=== PATIENT | female | born 1945 | race Two or more races ===

== ENCOUNTER 2017-06-01 15:39 | Emergency (ER) | payer MEDICARE, MEDICAID ==
[~2017-06-01] VITALS: Ht 154.9 cm; Wt 90.7 kg
[2017-06-01 17:43] LABS: Urine Bilirubin Negative (Negative); Urine Blood Negative /uL (Negative); Urine Color Yellow (Yellow); Urine Glucose Normal (Normal); Urine Ketone Negative (Negative); Urine Mucus FEW (None Seen); Urine Nitrite Negative (Negative); Urine RBC 3 /hpf (0 - 4); Urine Squamous Epithelial Cell FEW /hpf (<5); Urine Urobilinogen Normal (Negative); Urine WBC Clumps PRESENT /hpf (None Seen)
[2017-06-01] MEDS ORDERED: cefTRIAXone 1GM/10ml IVPUSH 10 ML IV ONE (18:00)
[2017-06-01 18:11] LABS: Basophils # (auto) 0 uL; Basophils % (auto) 0.7 % (0.0-2.0); Eosinophils # (auto) 0.1 uL; Hematocrit 39.9 % (36.0-46.0); Lymphocytes # (auto) 1.5 uL; Lymphocytes % (auto) 26.4 % (10.0-50.0); Mean Corpuscular Hemoglobin 27.4 pg (28.0-32.0); Mean Corpuscular Hgb Conc. 32.5 g/dL (32.0-36.0); Mean Corpuscular Volume 84.2 fL (80.0-100.0); Mean Platelet Volume 8.5 fL (6.9-10.8); Monocytes # (auto) 0.5 uL; Monocytes % (auto) 9.5 % (0.0-12.0); Neutrophils # (auto) 3.5 uL; Neutrophils % (auto) 61.4 % (37.0-80.0); Nucleated Red Blood Cells % 0.1 %; Platelet Count (auto) 167 10^3/uL (140-450); Red Cell Distribution Width 13.3 % (11.8-14.3); White Blood Cell 5.7 10^3/uL (4.4-10.8)
[2017-06-01 18:30] LABS: Albumin 3.2 g/dL (3.4-5.0); BUN/Creatinine Ratio 18.7; Calcium 8.7 mg/dL (8.5-10.1)
[2017-06-01 18:35] LABS: Bilirubin, Total 0.3 mg/dL (0.2-1.0); Total Protein 7.4 g/dL (6.4-8.2)
[2017-06-01 18:41] LABS: B-Type Natriuretic Peptide 310.88 pg/mL (0-100)
[2017-06-01 19:01] VITALS: BP 142/127
[2017-06-01 19:14] LABS: Temperature: 22.7 C (20.0-25.0)
== END 2017-06-01 20:54 | disposition home or self-care (01) ==
LOC: ER 15:49
DX: K59.00 Constipation, unspecified (principal); N39.0 Urinary tract infection, site not specified; I25.10 Atherosclerotic heart disease of native coronary artery without angina pectoris; M16.11 Unilateral primary osteoarthritis, right hip; E66.01 Morbid (severe) obesity due to excess calories; M47.896 Other spondylosis, lumbar region; I50.9 Heart failure, unspecified; E11.9 Type 2 diabetes mellitus without complications; Z68.37 Body mass index [BMI] 37.0-37.9, adult; Z95.0 Presence of cardiac pacemaker; Z88.8 Allergy status to other drugs, medicaments and biological substances
CPT/HCPCS: 36415; 74022; 80053; 81001; 83880; 84484; 85025; 96374

== ENCOUNTER 2017-06-25 00:44 | Emergency (ER) | payer MEDICARE ==
[~2017-06-25] VITALS: Ht 160 cm; Wt 2.4 kg
[2017-06-25] MEDS ORDERED: methylPREDNISolone SOD SUCC 125 MG/2 ML VL IV ONE (01:00)
[2017-06-25] MEDS ORDERED: diphenhdrAMINE HCL 50 MG/1 ML VL IV ONE (01:00)
[2017-06-25] MEDS ORDERED: FAMOTIDINE (10MG/ML) 2ML VL IV ONE (01:00)
[2017-06-25] MEDS ORDERED: ACETAMINOPHEN 325 MG TAB PO ONE (02:00)
[2017-06-25 03:29] VITALS: BP 196/93
[2017-06-25] MEDS ORDERED: HYDROmorphone HCL 2 MG/ML VL ONE (03:49)
[2017-06-25] MEDS ORDERED: ONDANSETRON HCL 4 MG/2 ML VIAL ONE (03:49)
[2017-06-25] MEDS ORDERED: HYDROmorphone HCL 2 MG/ML VL IV ONE (04:15)
[2017-06-25] MEDS ORDERED: ONDANSETRON HCL 4 MG/2 ML VIAL IV ONE (04:15)
== END 2017-06-25 04:34 | disposition home or self-care (01) ==
LOC: EDBD 00:44 → MED 00:55
DX: T78.3XXA Angioneurotic edema, initial encounter (principal); K12.1 Other forms of stomatitis; I11.0 Hypertensive heart disease with heart failure; I50.9 Heart failure, unspecified; E11.9 Type 2 diabetes mellitus without complications; Z95.0 Presence of cardiac pacemaker; Z95.1 Presence of aortocoronary bypass graft; Z88.8 Allergy status to other drugs, medicaments and biological substances; X58.XXXA Exposure to other specified factors, initial encounter
CPT/HCPCS: 70490; 96374; 96375; 99284; J1170; J1200; J2405; J2930; J3490

== ENCOUNTER 2018-03-13 16:43 | Observation (INO) | payer MEDICARE, MEDICAID ==
[~2018-03-13] VITALS: Ht 167.6 cm; Wt 104.3 kg
[2018-03-13 18:21] LABS: Basophils # (auto) 0 uL; Basophils % (auto) 0.9 % (0.0-2.0); Eosinophils # (auto) 0.2 uL; Hematocrit 42.1 % (36.0-46.0); Hemoglobin 13.9 g/dL (12.2-16.2); Lymphocytes % (auto) 24.1 % (10.0-50.0); Mean Corpuscular Hemoglobin 27.4 pg (28.0-32.0); Mean Corpuscular Volume 83.2 fL (80.0-100.0); Monocytes # (auto) 0.4 uL; Monocytes % (auto) 10.3 % (0.0-12.0); Neutrophils # (auto) 2.6 uL; Neutrophils % (auto) 60.7 % (37.0-80.0); Nucleated Red Blood Cells % 0.1 %; Platelet Count (auto) 123 10^3/uL (140-450); Red Blood Cells 5.06 10^6/uL (4.0-5.20); Red Cell Distribution Width 13.3 % (11.8-14.3); White Blood Cell 4.3 10^3/uL (4.4-10.8)
[2018-03-13 18:26] LABS: INR 0.93 (0.9-1.15)
[2018-03-13 18:32] LABS: Magnesium 2.2 mg/dL (1.6-2.6)
[2018-03-13] MEDS ORDERED: cloNIDine HCL 0.1 MG TAB PO ONE (19:00)
[2018-03-13] MEDS ORDERED: ACETAMINOPHEN 325 MG TAB PO ONE (19:00)
[2018-03-13] MEDS ORDERED: traMADol HCL 50 MG TAB PO ONE (21:00)
[2018-03-13 21:54] VITALS: BP 146/57
== END 2018-03-13 22:16 | disposition home or self-care (01) | DRG 552 ==
LOC: ER 16:43 → EDBD 16:43 → EDUNIT# 16:43 → OVERFLOW 16:44 → ER 22:16
PROVIDERS: ADMIT Family Medicine; ATTEND Family Medicine
DX: S13.4XXA Sprain of ligaments of cervical spine, initial encounter (principal); I11.0 Hypertensive heart disease with heart failure; I50.9 Heart failure, unspecified; E11.9 Type 2 diabetes mellitus without complications; W19.XXXA Unspecified fall, initial encounter; Y92.002 Bathroom of unspecified non-institutional (private) residence as the place of occurrence of the external cause; Y93.89 Activity, other specified; Y99.8 Other external cause status
CPT/HCPCS: 36415; 70450; 71045; 72125; 83735; 84484; 85025; 85610; 85730; 93005; 99285; G0378

== ENCOUNTER 2019-07-17 03:56 | Emergency (ER) | payer MEDICARE, MEDICAID ==
[~2019-07-17] VITALS: Ht 167.6 cm; Wt 72.6 kg
[2019-07-17 05:13] LABS: Basophils # (auto) 0 uL; Basophils % (auto) 0.5 % (0.0-2.0); Eosinophils # (auto) 0.1 uL; Monocytes # (auto) 0.4 uL; Neutrophils # (auto) 4.2 uL; Nucleated Red Blood Cells % 0.1 %; White Blood Cell 5.2 10^3/uL (4.4-10.8)
[2019-07-17 05:14] LABS: Hematocrit 37.2 % (36.0-46.0); Hemoglobin 12.2 g/dL (12.2-16.2); Lymphocytes # (auto) 0.6 uL; Lymphocytes % (auto) 10.6 % (10.0-50.0); Mean Corpuscular Hemoglobin 27.2 pg (28.0-32.0); Mean Corpuscular Hgb Conc. 32.7 g/dL (32.0-36.0); Mean Corpuscular Volume 83.3 fL (80.0-100.0); Monocytes % (auto) 6.7 % (0.0-12.0); Neutrophils % (auto) 81.2 % (37.0-80.0); Platelet Count (auto) 104 10^3/uL (140-450); Red Blood Cells 4.46 10^6/uL (4.0-5.20); Red Cell Distribution Width 14.2 % (11.8-14.3)
[2019-07-17 05:19] LABS: Urine Bacteria MANY /hpf (None Seen); Urine Blood 1+ /uL (Negative); Urine Mucus FEW (None Seen); Urine Specific Gravity 1.016 (1.001-1.035); Urine WBC 209 /hpf (0 - 5); Urine WBC Clumps PRESENT /hpf (None Seen)
[2019-07-17 05:28] LABS: Albumin 3.1 g/dL (3.4-5.0); Anion Gap 6 (5-15); Blood Alcohol < 3.0 mg/dL (0-5); Blood Urea Nitrogen 45 mg/dL (7-18); Carbon Dioxide 26 mmol/L (21-32); Chloride 111 mmol/L (98-107); Glucose 180 mg/dL (74-106); Sodium 143 mmol/L (136-145)
[2019-07-17 05:31] LABS: Alanine Aminotransferase 38 U/L (13-56); Alkaline Phosphatase 109 U/L (45-117); Aspartate Aminotransferase 42 U/L (15-37); Bilirubin, Total 0.4 mg/dL (0.2-1.0); GFR African American 42 mL/min; GFR Non-African American 35 mL/min
[2019-07-17 05:31] LABS: Alcohol, Urine < 3.0 mg/dL (0-5); Amphetamine Screen, Urine NEGATIVE (NEGATIVE); Barbiturate Scree,Urine NEGATIVE (NEGATIVE); Benzodiazephine Screen, Urine NEGATIVE (NEGATIVE); Cannabinoid Screen, Urine NEGATIVE (NEGATIVE); Cocaine Screen, Urine NEGATIVE (NEGATIVE); Opiate Scree,Urine NEGATIVE (NEGATIVE); Phencyclidine Screen, Urine NEGATIVE (NEGATIVE)
[2019-07-17] MEDS ORDERED: ONDANSETRON HCL 4 MG/2 ML VIAL IV ONE (05:45)
[2019-07-17] MEDS ORDERED: MORPHINE SULF INJ 2 MG/ML SYRINGE 1ML IV ONE (05:45)
[2019-07-17] MEDS ORDERED: cloNIDine HCL 0.1 MG TAB PO ONE (06:15)
[2019-07-17] MEDS ORDERED: cefTRIAXone 1GM/50ML D5W 50 ML IV ONE (07:00)
[2019-07-17 14:00] VITALS: BP 137/60
== END 2019-07-17 15:12 | disposition home or self-care (01) ==
LOC: ER 03:56 → EDBD 03:56 → ER 15:11
DX: E11.21 Type 2 diabetes mellitus with diabetic nephropathy (principal); F03.90 Unspecified dementia, unspecified severity, without behavioral disturbance, psychotic disturbance, mood disturbance, and anxiety; E44.1 Mild protein-calorie malnutrition; M19.90 Unspecified osteoarthritis, unspecified site; N39.0 Urinary tract infection, site not specified; Z95.0 Presence of cardiac pacemaker; I11.0 Hypertensive heart disease with heart failure; I50.9 Heart failure, unspecified; E11.9 Type 2 diabetes mellitus without complications
CPT/HCPCS: 36415; 70450; 80053; 80307; 80320; 81001; 85025; 93005; 96365; 96375; 99284; J0696; J2270; J2405